=== PATIENT | female | born 1960 | race Caucasian/White ===

== ENCOUNTER → 2017-02-18 | Outpatient (CLI) | payer OTHER ==
[~2017-02-18] MED LIST: ALEVE220 MG PO; CHILDREN'S CHEW81 MG PO; GLUCOSAMINE-MS1 EAC2 PO; IMITREX100 MG PO; MEDROL4 M1; NORCO 5-325 MG1 TAB PO; NORCO 5-325 TA1 EACH PO; TYLENOL EXTRA500 MG PO; VICKS NYQUIL C354 M2 PO; ZANTAC (NON-FO150 MG PO
== END | disposition disaster alternative care site (69) ==
LOC: GRAD 09:41
DX: Z48.89 Encounter for other specified surgical aftercare (principal); Z90.89 Acquired absence of other organs